=== PATIENT | male | born 1945 | race Hispanic/Latino ===

== ENCOUNTER 2021-10-12 06:13 | Day surgery (SDC) | payer MEDICARE ==
[2021-10-10 11:50] LABS: BASOPHILS % (AUTO) 0.6 % (0.0-5.0); EOSINOPHILS % (AUTO) 2.5 % (0.0-8.0); HEMATOCRIT 38.4 % (42-54); LYMPHOCYTES % (AUTO) 17.1 % (21.0-51.0); MEAN CORPUSCULAR HEMOGLOBIN 29.1 pg (27.0-33.0); MEAN CORPUSCULAR HGB CONC 32.6 g/dL (32.0-36.0); MEAN CORPUSCULAR VOLUME 89.5 fL (79-99); MONOCYTES % (AUTO) 9.7 % (3.0-13.0); NEUTROPHILS % (AUTO) 69.6 % (40.0-77.0); PLATELET COUNT (AUTO) 319 K/uL (130-400); RED BLOOD CELL COUNT(AUTO) 4.29 MIL/uL (4.50-6.20); RED CELL DISTRIBUTION WIDTH 14.1 % (11.0-15.5); WHITE BLOOD COUNT (AUTO) 6.4 K/uL (4.8-10.8)
[2021-10-10 12:08] LABS: CREATININE 1.6 mg/dL (0.5-1.5); POTASSIUM 4.7 mmol/L (3.5-5.1)
[2021-10-11 08:57] VITALS: BP 135/69
[2021-10-12] VITALS (24 sets, daily range): BP systolic 98–148; BP diastolic 37–81
[~2021-10-12] VITALS: Ht 162.6 cm; Wt 84.4 kg
[~2021-10-12 06:13] MED LIST: AMLO-258 PO; FENO90CA2 PO; FINA5TAB41 PO; GLIP10TA9 PO; METF-444 PO; METO25TA6 PO; OLME-7 PO; ROSU10TA28 PO; TAMS-1 PO
[2021-10-12] MEDS ORDERED: LACTATED RINGERS 1000ML 0 ML IV ONE (06:46)
[2021-10-12] MEDS ORDERED: CEFTRIAXONE 1G VIAL ONE (06:46)
[2021-10-12] MEDS ORDERED: 0.9%NACL 1000ML 1,000 ML IV ONE (06:47)
[2021-10-12] MEDS ORDERED: SUCCINYLCHOLINE 200MG/10ML SYR ONE (07:25)
[2021-10-12] MEDS ORDERED: ONDANSETRON 4MG INJ ONE (07:25)
[2021-10-12] MEDS ORDERED: PROPOFOL 10 MG/ML 20ML VIAL IV ONE (07:25)
[2021-10-12] MEDS ORDERED: DEXAMETHASONE SOD PHOSPHATE 10MG/ML 1ML VIAL ONE (07:25)
[2021-10-12] MEDS ORDERED: GLYCOPYRROLATE 1 MG/5 ML SYRINGE ONE (07:25)
[2021-10-12] MEDS ORDERED: LIDOCAINE PF 100MG/5ML (2%) SYRINGE 5ML ONE (07:25)
[2021-10-12] MEDS ORDERED: MIDAZOLAM HCL 1 MG/ML 2ML VIAL ONE ×2 (07:25→10:58)
[2021-10-12] MEDS ORDERED: ROCURONIUM 10MG/1ML SYR 10 MG/ML ML ONE (07:26)
[2021-10-12] MEDS ORDERED: FENTANYL CITRATE PF 50 MCG/1 ML 2ML VIAL ONE (07:26)
[2021-10-12] MEDS ORDERED: NEOSTIGMINE 5MG/5ML SYR IV ONE (07:26)
[2021-10-12] MEDS ORDERED: NOREPINEPHRINE BITARTRATE 1 MG/1 ML ML IV ONE (07:51)
[2021-10-12] MEDS ORDERED: CEFTRIAXONE 1G VIAL IVP ONE (08:00)
[2021-10-12] MEDS ORDERED: EPHEDRINE SULFATE 50 MG/ML AMPULE ONE (08:23)
[2021-10-12] MEDS ORDERED: OPIUM/BELLADONNA ALKALOIDS 1 EACH SUPP.RECT RC ONE (09:23)
[2021-10-12] MEDS ORDERED: MEPERIDINE-PF 25 MG/ML SYG ONE ×2 (10:08→10:20)
[2021-10-12] MEDS ORDERED: ACETAMINOPHEN WITH CODEINE 1 TAB TAB ONE (11:40)
== END 2021-10-12 12:40 | disposition home or self-care (01) ==
LOC: DAH 06:13
PROVIDERS: ATTEND Urology
DX: D49.4 Neoplasm of unspecified behavior of bladder (principal); R31.0 Gross hematuria; N18.9 Chronic kidney disease, unspecified; N40.0 Benign prostatic hyperplasia without lower urinary tract symptoms; I25.10 Atherosclerotic heart disease of native coronary artery without angina pectoris; I12.9 Hypertensive chronic kidney disease with stage 1 through stage 4 chronic kidney disease, or unspecified chronic kidney disease; E11.22 Type 2 diabetes mellitus with diabetic chronic kidney disease; Z79.899 Other long term (current) drug therapy
CPT/HCPCS: 36415; 52235; 80048; 82948 ×2; 85025; 87635; 93005; A4215; A4221; A4222; A4223; A4344; A4354; A4358; A4600; A4663; A6260; C1758; C9803; J0330; J0696; J1100; J2001; J2175 ×2; J2250 ×2; J2405; J2704; J2710; J3010; J3490 ×3; J7030 ×2; J7120

== ENCOUNTER 2021-12-12 16:38 | Observation (INO) | payer MEDICARE ==
[~2021-12-12] VITALS: Ht 165.1 cm; Wt 79.4 kg
[2021-12-12] MEDS ORDERED: DiphenhydrAMINE HCL 50 MG/ML VIAL IVP PRN (18:00)
[2021-12-12] MEDS ORDERED: ONDANSETRON 4MG INJ IVP PRN (18:00)
[2021-12-12] MEDS ORDERED: MAG/ALUM/SIMETH 30 ML UDCUP PO PRN (18:00)
[2021-12-12] MEDS ORDERED: 0.9%NACL 10ML VIAL IVP SCH (18:00)
[2021-12-12] MEDS ORDERED: DIPHENHYDRAMINE HCL 25 MG CAPSULE PO PRN (18:00)
[2021-12-12] MEDS ORDERED: CLONIDINE HCL 0.1 MG TABLET PO PRN (18:00)
[2021-12-12] MEDS ORDERED: ACETAMINOPHEN 325 MG TAB PO PRN ×2 (18:00)
[2021-12-12] MEDS ORDERED: NITROGLYCERIN 0.4 MG SL TAB SL PRN (18:00)
[2021-12-12] MEDS ORDERED: GUAIFENESIN SUGAR-FREE 100 MG/5 ML UDCUP PO PRN (18:00)
[2021-12-12] MEDS ORDERED: LACTULOSE 20 GM/30 ML UDCUP PO PRN (18:00)
[2021-12-12] MEDS ORDERED: ZOLPIDEM TARTRATE 5 MG TAB PO PRN (18:00)
[2021-12-12] MEDS ORDERED: GUAIFENESIN-DM 200/20 MG 10 ML PO PRN (18:00)
[2021-12-12 18:28] LABS: BASOPHILS % (AUTO) 0.4 % (0.0-5.0); EOSINOPHILS % (AUTO) 1.5 % (0.0-8.0); HEMATOCRIT 25.6 % (42-54); LYMPHOCYTES % (AUTO) 17.6 % (21.0-51.0); MEAN CORPUSCULAR HEMOGLOBIN 21.7 pg (27.0-33.0); MEAN CORPUSCULAR HGB CONC 26.2 g/dL (32.0-36.0); MEAN CORPUSCULAR VOLUME 82.8 fL (79-99); MONOCYTES % (AUTO) 12.3 % (3.0-13.0); NEUTROPHILS % (AUTO) 67.9 % (40.0-77.0); PLATELET COUNT (AUTO) 335 K/uL (130-400); RED BLOOD CELL COUNT(AUTO) 3.09 MIL/uL (4.50-6.20); RED CELL DISTRIBUTION WIDTH 16.9 % (11.0-15.5); WHITE BLOOD COUNT (AUTO) 7.2 K/uL (4.8-10.8)
[2021-12-12 18:49] LABS: ALBUMIN 3.2 g/dL (3.5-5.0); BILIRUBIN,DIRECT 0.1 mg/dL (0.0-0.3); BILIRUBIN,TOTAL 0.4 mg/dL (0.2-1.0); CREATININE 1.3 mg/dL (0.5-1.5); POTASSIUM 4.1 mmol/L (3.5-5.1); TOTAL PROTEIN, SERUM 7.1 g/dL (6.0-8.3)
[2021-12-12] MEDS ORDERED: FUROSEMIDE 40MG VIAL ONE (23:27)
[2021-12-13] MEDS ORDERED: GLIP10TA9 PO (01:46)
[2021-12-13] MEDS ORDERED: METO25TA6 PO (01:46)
[2021-12-13] MEDS ORDERED: OLME-9 PO (01:46)
[2021-12-13] MEDS ORDERED: FENO134C PO (01:46)
[2021-12-13] MEDS ORDERED: AMLO-258 PO ×2 (01:46→11:38)
[2021-12-13] MEDS ORDERED: METF-444 PO (01:46)
[2021-12-13] MEDS ORDERED: TAMS-1 PO (01:46)
[2021-12-13] MEDS ORDERED: ROSU10TA28 PO (01:46)
[2021-12-13 03:52] LABS: HEMATOCRIT 30.7 % (42-54)
[2021-12-13 05:22] LABS: HEMATOCRIT 32.6 % (42-54); MEAN CORPUSCULAR HEMOGLOBIN 23.6 pg (27.0-33.0); MEAN CORPUSCULAR HGB CONC 28.8 g/dL (32.0-36.0); MEAN CORPUSCULAR VOLUME 81.7 fL (79-99); RED BLOOD CELL COUNT(AUTO) 3.99 MIL/uL (4.50-6.20); WHITE BLOOD COUNT (AUTO) 7.4 K/uL (4.8-10.8)
[2021-12-13 05:29] LABS: CREATININE 1.1 mg/dL (0.5-1.5); POTASSIUM 3.4 mmol/L (3.5-5.1)
[2021-12-13] MEDS: KCL 20 MEQ ERTAB PO PRN ×2 (07:45→09:41)
[2021-12-13] MEDS ORDERED: POTASSIUM CHLORIDE 20MEQ/100ML 100 ML IV PRN (08:00)
[2021-12-13] MEDS ORDERED: LIDOCAINE HCL-MPF 1% 2ML VIAL IM PRN (08:00)
[2021-12-13] MEDS ORDERED: POTASSIUM CHLORIDE 10% ELIXIR 20 MEQ/15 ML UDCUP PO PRN (08:00)
[2021-12-13 09:41] VITALS: BP 129/69
[2021-12-13] MEDS ORDERED: GLIP-162 PO (11:38)
== END 2021-12-13 10:05 | disposition home or self-care (01) ==
LOC: EDH 17:07 → EDHIP 17:08
PROVIDERS: ADMIT Internal Medicine; ATTEND Internal Medicine
DX: D64.9 Anemia, unspecified (principal); R31.9 Hematuria, unspecified; I10 Essential (primary) hypertension; I25.10 Atherosclerotic heart disease of native coronary artery without angina pectoris; E11.51 Type 2 diabetes mellitus with diabetic peripheral angiopathy without gangrene; E78.5 Hyperlipidemia, unspecified; N40.0 Benign prostatic hyperplasia without lower urinary tract symptoms; C67.9 Malignant neoplasm of bladder, unspecified; J84.10 Pulmonary fibrosis, unspecified; Z95.1 Presence of aortocoronary bypass graft
CPT/HCPCS: 36415 ×2; 36430 ×2; 80048 ×2; 80076; 85014; 85018; 85025; 85027; 96374; G0378 ×12; J1940

== ENCOUNTER 2021-12-14 07:27 | Day surgery (SDC) | payer MEDICARE ==
[2021-12-11 13:15] LABS: INR 1.1 (0.85-1.15); PROTHROMBIN TIME 11.9 SEC (9.6-11.6)
[2021-12-11 13:28] LABS: HEMATOCRIT 24.8 % (42-54)
[2021-12-13 11:31] VITALS: BP 114/53
[~2021-12-14] VITALS: Ht 167.6 cm; Wt 80.9 kg
[2021-12-14] VITALS (14 sets, daily range): BP systolic 100–114; BP diastolic 51–85
[2021-12-14] MEDS: CEFTRIAXONE 1G VIAL IVP SCH ×2 (06:00→10:40)
[~2021-12-14 07:27] MED LIST changes: +0.9%NACL 1000ML 1,000 ML IV ONE; +FENO134C21 PO; -FENO90CA2 PO; -FINA5TAB41 PO; +GLIP-162 PO; -OLME-7 PO; +OLME-9 PO
[2021-12-14 08:47] LABS: INR 1.11 (0.85-1.15)
[2021-12-14 08:48] LABS: PARTIAL THROMBOPLASTIN TIME 25.8 SEC (26.3-35.5)
[2021-12-14] MEDS ORDERED: LIDOCAINE PF 100MG/5ML (2%) SYRINGE 5ML ONE (10:24)
[2021-12-14] MEDS ORDERED: PROPOFOL 10 MG/ML 20ML VIAL IV ONE (10:25)
[2021-12-14] MEDS ORDERED: FENTANYL CITRATE PF 50 MCG/1 ML 5ML AMP IV ONE (10:25)
[2021-12-14] MEDS ORDERED: EPHEDRINE SULFATE 50 MG/ML AMPULE ONE (10:37)
[2021-12-14] MEDS ORDERED: OPIUM/BELLADONNA ALKALOIDS 1 EACH SUPP.RECT RC ONE (11:08)
[2021-12-14] MEDS ORDERED: MEPERIDINE-PF 25 MG/ML SYG ONE (11:59)
[2021-12-14] MEDS ORDERED: ACETAMINOPHEN WITH CODEINE 1 TAB TAB ONE (12:41)
[2021-12-14] MEDS ORDERED: PHENAZOPYRIDINE HCL 200 MG TABLET ONE (12:50)
== END 2021-12-14 13:20 | disposition home or self-care (01) ==
LOC: DAH 07:27
PROVIDERS: ATTEND Urology
DX: R31.0 Gross hematuria (principal); Z20.822 Contact with and (suspected) exposure to COVID-19; C67.4 Malignant neoplasm of posterior wall of bladder; D64.9 Anemia, unspecified; I25.10 Atherosclerotic heart disease of native coronary artery without angina pectoris; E11.9 Type 2 diabetes mellitus without complications; I10 Essential (primary) hypertension; I25.2 Old myocardial infarction; E78.5 Hyperlipidemia, unspecified; I45.10 Unspecified right bundle-branch block; Z98.890 Other specified postprocedural states; Z79.899 Other long term (current) drug therapy; Z79.01 Long term (current) use of anticoagulants
CPT/HCPCS: 36415 ×2; 52235; 82948; 85014; 85018; 85610 ×2; 85730; 86850 ×2; 86900 ×2; 86901 ×2; 86923; 87635; 88305; 93005; A4215; A4221; A4222; A4223; A4344; A4354; A4358 ×2; A4663; A6260; C1758; C9803; J0696; J2001; J2175; J2704; J3010; J3490; J7030; J7120; P9016